=== PATIENT | female | born 1965 | race Caucasian/White ===

== ENCOUNTER 2018-08-03 14:21 | Emergency (ER) | payer OTHER ==
[~2018-08-03 14:21] MED LIST: ISOVUE-370 76%-LOCM 1 ML ONE
[2018-08-03 15:23] LABS: Bilirubin Negative (Negative); Blood, Urine Trace (Negative); Clarity CLEAR (Clear); Glucose, Urine (Dipstick) Negative (Negative); Leukocyte Negative (Negative); Nitrite Negative (Negative); Protein, Urine (Dipstick) Negative (Neg-Trace); Specific Gravity, Urine 1.004 (1.002-1.036); Urobilinogen 0.2 mg/dL (0.2-1.0); pH, Urine 7.5 (5.0-9.0)
[2018-08-03 15:25] LABS: Bacteria/HPF None Seen HPF (None Seen); Hyaline Casts/LPF 0-3 HYALINE CAST LPF (0-3 Hyaline); Pathc Cast-AUWi Flag 0.13 (0-2.49); Squamous Epithelial None Seen HPF (0-3); WBC/HPF None Seen HPF (0-3)
[2018-08-03 15:30] LABS: #Lymphocytes 1.2 thou/uL (1.20-3.40); #Monocytes 0.7 thou/uL (0.11-0.59); #Neutrophils 5.7 thou/uL (1.40-6.50); %Basophils 0.4 % (0.0-1.0); %Eosinophils 0.1 % (0.0-10.0); %Lymphocytes 16.1 % (21.0-51.0); %Monocytes 9.2 % (0.0-10.0); %Neutrophils 74.2 % (42.0-75.0); Hemoglobin 13.1 g/dL (12.0-16.0); Mean Corpuscular HGB CONC 33.2 g/dL (32.0-36.0); Mean Corpuscular Hemoglobin 32.5 pg (27.0-31.0); Mean Corpuscular Volume 97.9 fL (78.0-98.0); Mean Platelet Volume 9.2 fL (7.4-10.4); Platelet Count 201 thou/uL (130-400); RBC Distribution Width 11.8 % (11.5-14.5); Red Blood Cell (RBC) Count 4.03 mill/uL (4.20-5.40); White Blood Cell (WBC) Count 7.6 thou/uL (4.8-10.8)
[2018-08-03 15:36] LABS: BHCG - Serum Negative (NEGATIVE)
[2018-08-03 15:37] LABS: Pregs Control Background? CLEAR/WHITE (CLR/WHITE); Pregs Control Bar Appear? YES (CONTROL BAR)
[2018-08-03 15:53] LABS: ALT (SGPT) 15 U/L (8-55); AST (SGOT) 16 U/L (5-34); Alkaline Phosphatase 53 U/L (40-150); Anion Gap 11 mmol/L (10-20); BUN (Urea Nitrogen) 12 mg/dL (9.8-20.1); Bilirubin, Total 0.7 mg/dL (0.2-1.2); Calc. Creatinine Clearance 0 mL/min (70-130); Calcium 9.4 mg/dL (7.8-10.44); Carbon Dioxide 28 mmol/L (22-29); Chloride 103 mmol/L (98-107); Estimated GFR-MDRD 80; Glucose 99 mg/dL (70-105); Potassium 4.4 mmol/L (3.5-5.1); Sodium 138 mmol/L (136-145)
--- NOTE | 2018-08-03 17:42 | CT ---
CT ABDOMEN AND PELVIS WITH IV CONTRAST: 08/03/18 HISTORY: Left lower quadrant abdominal pain. FINDINGS: The lung bases are clear. There is a 7 mm low density lesion in the median segment of the right lobe of the liver, too small to characterize. In the absence of known malignancy, this is likely a benign finding. No calcified gallstones are seen. The spleen, pancreas adrenal glands, and kidneys are elías l. No free air, free fluid or lymphadenopathy seen in the abdomen or pelvis. The uterus is enlarged with masses. The largest of which is well circumscribed and low density measur ing 9.5 x 10 x 11 cm. This can either represent a degenerative fibroid or leiomyosarcoma. There is no evidence of aneurysmal dilatation of the abdominal aorta. A retroaortic left renal vein i s present. There are degenerative changes in the spine. IMPRESSION: Fibroid uterus with a large mass measuring 9.5 x 10 x 11 cm which may represent a degenerative fibroi d or a leiomyosarcoma. Gynecologic consultation is recommended. Discussed over the telephone with ER physician, Dr. Siria Malin at 5:34 p.m. POS: [facility]ANN
--- NOTE | 2018-08-03 18:42 | ULT ---
GALLBLADDER ULTRASOUND: 08/03/18 HISTORY: Abdominal pain. FINDINGS: The liver, pancreas, and right kidney appear normal. No shadowing gallstones, gallbladder wall thicke devonte, or pericholecystic fluid are seen. There is a small amount of sludge in the gallbladder. No yonny e fluid is noted in Hoang's pouch. IMPRESSION: Small amount of gallbladder sludge, otherwise unremarkable exam. POS: TAY
[2018-08-03] MEDS ORDERED: Ondansetron PF 4 MG/2 ML Vial ONE (20:02)
[2018-08-03] MEDS ORDERED: Morphine 4 MG/ML VIAL ONE (20:02)
--- NOTE | 2018-08-03 20:50 | ULT ---
TRANSABDOMINAL AND TRANSVAGINAL PELVIC ULTRASOUND WITH BLANCO SCALE, COLOR FLOW AND SPECTRAL DOPPLER IM AGING 08/03/18 HISTORY: Left lower quadrant pain. The uterus measures 10 x 10.6 x 10.6 cm with a large complex heterogeneous mass within the uterus whi ch almost occupies the entire uterus. The uterus itself is partially obscured. Endometrium measures 6 mm in thickness without endometrial fluid. The mass almost occupies the entire uterus. The right ova ry is not visualized. The left ovary measures 2.9 x 2.1 x 2.7 cm and has a normal appearance and demo nstrates flow. No free fluid is seen. IMPRESSION: 1. Large uterine mass. 2. Please see CT report. POS: [facility]ANN
== END 2018-08-03 21:49 | disposition home or self-care (01) ==
LOC: ERS 14:21
DX: N85.8 Other specified noninflammatory disorders of uterus (principal); E03.9 Hypothyroidism, unspecified; Z79.899 Other long term (current) drug therapy
CPT/HCPCS: 36415; 74177; 76705; 76856; 80053; 81003; 81015; 83690; 84703; 85025; 87086; 93976; 96361; 96374; 96375; J2270; J2405; Q9966

== ENCOUNTER 2018-08-05 11:15 | Inpatient (IN) | payer OTHER ==
[2018-08-05 12:14] VITALS: BMI 24.9
--- NOTE | 2018-08-08 00:43 | HP ---
Date of operation, 08/08/2018. CHIEF COMPLAINT: Lower abdominal and pelvic pain. HISTORY OF PRESENT ILLNESS: This is a 52-year-old P1 with acute onset of pain in the last week in the lower abdomen. She presented to the ER secondary to worsening lower abdominal and pelvic pain and swelling, and CT and pelvic ultrasound showed a large 10 x 10 cm intrauterine mass, probable fibroid with degenerative features. Considerations would be sarcomatous change. CT scan was negative for adenopathy or ascites or other concerning findings. The patient has had nausea and lower abdominal distention. She has had decreased appetite in the last week with these progressive symptoms. She does find slight relief with nonsteroidal anti-inflammatories. REVIEW OF SYSTEMS: She denies any vaginal bleeding or discharge. No fever or unintended weight loss. No change in appetite. No cardiovascular or respiratory symptoms. No neurologic or psychiatric symptoms. CAMP COORDINATOR HISTORY: Postmenopausal eight months since LMP. Last Pap smear four years ago. Sexually active. She has no history of STDs. OB HISTORY: G1, P1, x1. FAMILY HISTORY: Diabetes, maternal grandmother. SOCIAL HISTORY: Negative x3. PAST SURGICAL HISTORY: Negative. PAST MEDICAL HISTORY: Hypothyroidism. PHYSICAL EXAMINATION: VITAL SIGNS: BMI 25.1, blood pressure 114/72, pulse is 70, respirations 18, O2 saturation 99%. GENERAL: No acute distress. Alert and oriented x3. CARDIAC: Regular rate and rhythm. LUNGS: Clear to auscultation bilaterally. ABDOMEN: Soft, nontender, and nondistended. EXTREMITIES: No edema, cyanosis, or clubbing. PELVIC: Deferred to OR. ASSESSMENT AND PLAN: A 52-year-old with worsening lower abdominal pain and distention with appearance of the uterine fibroid degeneration on imaging and need for emergent surgery. I have counseled the patient on total abdominal hysterectomy, bilateral salpingo-oophorectomy in the event that this is a malignancy to ensure resection of the mass in total. I have discussed postoperative referral to CAMP COORDINATOR/ONC in the event this is malignant, however, this is less likely at this point. I have counseled the patient on that and she wishes to proceed. All risks and benefits were discussed with the patient and all questions were answered. Job ID: [id number]
[2018-08-08] MEDS ORDERED: CeleCOXIB 100 MG CAP ONE (06:15)
[2018-08-08] MEDS ORDERED: Famotidine/PF 20 mg/2ml Vial ONE (06:15)
[2018-08-08] MEDS ORDERED: Gabapentin 300 MG CAP ONE (06:15)
[2018-08-08] MEDS ORDERED: Fentanyl 100 MCG/2 ML VIAL ONE ×5 (06:48→11:19)
[2018-08-08] MEDS ORDERED: Ondansetron PF 4 MG/2 ML Vial ONE ×3 (06:59→11:58)
[2018-08-08] MEDS ORDERED: Scopolamine 1.5 mg/72 hour Patch ONE (06:59)
[2018-08-08] MEDS ORDERED: Bupivacaine PF 0.5% 30 ML VIAL ONE ×2 (08:02→09:02)
[2018-08-08] MEDS ORDERED: Ondansetron PF 4 MG/2 ML Vial IVP PRN (09:45)
[2018-08-08] MEDS ORDERED: Bisacodyl 10 MG SUPP PR PRN (09:45)
[2018-08-08] MEDS ORDERED: diphenhydrAMINE 25 MG CAP PO PRN (09:45)
[2018-08-08] MEDS ORDERED: Ropivacaine 0.2% 550 ML 750 ML NERVE BLCK SCH (09:45)
[2018-08-08] MEDS ORDERED: Morphine 4 MG/ML VIAL SLOW IVP PRN (09:45)
[2018-08-08] MEDS ORDERED: Zolpidem Tartrate 5 MG TAB PO PRN (09:45)
[2018-08-08] MEDS ORDERED: Promethazine HCl 25 MG/ML VIAL IM PRN ×2 (09:45→10:21)
[2018-08-08] MEDS ORDERED: Bisacodyl 5 MG TAB PO PRN (10:03)
[2018-08-08] MEDS ORDERED: Ropivacaine HCl/PF 750 ML in Premix Bag 1 BAG NERVE BLCK SCH (10:15)
[2018-08-08] MEDS ORDERED: Promethazine HCl 25 MG/ML VIAL ONE (10:17)
[2018-08-08] MEDS ORDERED: Promethazine HCl 25 MG/ML VIAL SLOW IVP PRN (10:21)
[2018-08-08] MEDS ORDERED: Ondansetron HCl/PF 4 MG/2 ML Vial IVP PRN (10:21)
[2018-08-08] MEDS ORDERED: Lidocaine 1% PF 5 ML VIAL ONE (11:58)
[2018-08-08] MEDS ORDERED: Rocuronium Bromide 10 MG/ML (10ML VIAL) ONE (11:58)
[2018-08-08] MEDS ORDERED: diphenhydrAMINE 50 MG/ML VIAL ONE (11:58)
[2018-08-08] MEDS ORDERED: PROPOFOL 200 MG/20 ML VIAL ONE (11:58)
[2018-08-08] MEDS ORDERED: Dexamethasone 20 MG/5 ML VIAL ONE (11:58)
[2018-08-08] MEDS ORDERED: Glycopyrrolate 0.2 MG/ML 5 ML SYRINGE ONE (11:58)
[2018-08-08] MEDS: Ketorolac Tromethamine 30 MG/ML VIAL IVP SCH ×2 (12:43→18:35)
[2018-08-08] MEDS: Lactated Ringer's 1,000 ML IV SCH (12:44)
[2018-08-08] MEDS ORDERED: Acetaminophen 1,000 MG in Premix Bag 1 BAG IVPB PRN (17:24)
[2018-08-08] MEDS: Docusate Calcium (SURFAK) 240 MG CAP PO SCH (21:20)
[2018-08-08] MEDS: Gabapentin 300 MG CAP PO SCH (21:20)
[2018-08-08] MEDS: HYDROcodone/Acetaminophen 5/325 mg Tablet PO PRN (22:09)
[2018-08-08] MEDS: Simethicone Chewable 80 MG TAB PO PRN (22:10)
[2018-08-09] MEDS: Ketorolac Tromethamine 30 MG/ML VIAL IVP SCH ×2 (00:47→04:53)
[2018-08-09] MEDS: Lactated Ringer's 1,000 ML IV SCH ×3 (00:50→14:14)
--- NOTE | 2018-08-09 04:51 | PDOC.EVN ---
Event Note - Event Note Event Note: 08/09/17 at 0445: RN Phone call to me: Patient had TRACEY and BSO by Dr arce, midline incision. Called for low UOP. BP is 85/51, pulse 61...abd is nontender and appropriate tenderness...no suspcicion of bleeding at this time. RN believes may be fluid poor. As nontachycardic and appears stable, I will give 1 liter bolus for now. Hemogram ordered for 0500. UOP: 200ml last check by herr when it was removed at 2215... at 0440, voided 100ml, bladder scan was [address] Will notify Dr Arce at 0700. I will hold Toradol for now.
[2018-08-09] MEDS ORDERED: Lactated Ringer's 1,000 ML IV SCH ×2 (05:00→09:00)
[2018-08-09] MEDS: HYDROcodone/Acetaminophen 5/325 mg Tablet PO PRN ×4 (05:38→22:19)
[2018-08-09] MEDS: Levothyroxine Sodium 112 MCG TAB PO SCH (05:44)
[2018-08-09 07:38] LABS: Hemoglobin 9.9 g/dL (12.0-16.0); Mean Corpuscular HGB CONC 31.6 g/dL (32.0-36.0); Mean Corpuscular Hemoglobin 31.4 pg (27.0-31.0); Mean Corpuscular Volume 99.2 fL (78.0-98.0); Mean Platelet Volume 8.7 fL (7.4-10.4); Platelet Count 268 thou/uL (130-400); RBC Distribution Width 11.7 % (11.5-14.5); Red Blood Cell (RBC) Count 3.17 mill/uL (4.20-5.40); White Blood Cell (WBC) Count 8.7 thou/uL (4.8-10.8)
--- NOTE | 2018-08-09 07:53 | PDOC.EVN ---
Event Note - Event Note Event Note: POD1 S: No complaints, ambulating, passing flatus, mariana po. Only able to void 75cc since DC catheter last night around 2300. Pain controlled. Denies dizziness, weakness, palpitations. O: 87/52 NAD RRR CTAB S/appttp/ND/BS+ Inc with tegaderm, c/d No e/c/c Hgb 9.9 A/P POD1 s/p TRACEY BSO for symptomatic uterine fibroid BP slightly low, will incr fluids, may need to lower Onq pump, and cont to monitor, asymptomatic, otherwise VSSAF Hgb 13-->ebl 200-->9.9, no s/sx anemia Meeting appropriate milestones Pain- cont OnQ pain pump, po pain meds Pathology pending - Straight cath, allow up to 6h to void, check creatinine ppx ambulating Cont postop care.
[2018-08-09] MEDS: Docusate Calcium (SURFAK) 240 MG CAP PO SCH ×2 (09:05→22:19)
[2018-08-09] MEDS: Gabapentin 300 MG CAP PO SCH ×2 (09:05→22:19)
[2018-08-09] MEDS: Ibuprofen 800 MG TAB PO SCH ×2 (09:05→16:30)
[2018-08-09 09:14] LABS: Anion Gap 12 mmol/L (10-20); BUN (Urea Nitrogen) 10 mg/dL (9.8-20.1); Calc. Creatinine Clearance 94 mL/min (70-130); Calcium 8.6 mg/dL (7.8-10.44); Carbon Dioxide 27 mmol/L (22-29); Chloride 102 mmol/L (98-107); Estimated GFR-MDRD 76; Glucose 89 mg/dL (70-105); Potassium 4.1 mmol/L (3.5-5.1); Sodium 137 mmol/L (136-145)
[2018-08-09] MEDS: Simethicone Chewable 80 MG TAB PO PRN ×2 (13:00→18:42)
[2018-08-09] MEDS ORDERED: Morphine 2 MG/ML SYRINGE SLOW IVP SCH (13:00)
[2018-08-10] MEDS: Ibuprofen 800 MG TAB PO SCH ×3 (00:30→16:31)
[2018-08-10] MEDS: Lactated Ringer's 1,000 ML IV SCH ×3 (01:03→16:59)
[2018-08-10] MEDS: Levothyroxine Sodium 112 MCG TAB PO SCH (05:41)
[2018-08-10] MEDS ORDERED: Milk Of Magnesia 30 ML UDCUP PO PRN (08:06)
[2018-08-10] MEDS ORDERED: Acetaminophen 500 MG TAB PO PRN (08:06)
--- NOTE | 2018-08-10 08:10 | PDOC.EVN ---
Event Note - Event Note Event Note: POD2 S: Feels slight nausea this am after drinking coffee. +flatus, no BM. Was constipated prior to surgery. Normal voiding. O: VSSAF NAD RRR CTAB softly distended/BS decreased/seth ttp Inc c/d/i with soraya No e/c/c A: POD2 s/p TRACEY BSO P: Ambulate, laxatives to promote BM, cont po pain meds. If doing well will DC home later today.
[2018-08-10] MEDS: Docusate Calcium (SURFAK) 240 MG CAP PO SCH (08:53)
[2018-08-10] MEDS: Gabapentin 300 MG CAP PO SCH (08:57)
[2018-08-10 11:16] VITALS: TEMP 98.4
[2018-08-10] MEDS ORDERED: Bisacodyl 10 MG SUPP PR SCH (12:45)
[2018-08-10 15:50] VITALS: BP 107/57
--- NOTE | 2018-08-11 10:13 | OP ---
DATE OF PROCEDURE: 08/08/2018 PREOPERATIVE DIAGNOSIS: Symptomatic uterine mass versus fibroid. POSTOPERATIVE DIAGNOSIS: Symptomatic uterine mass versus fibroid. PROCEDURE PERFORMED: Total abdominal hysterectomy, bilateral salpingo-oophorectomy. ANESTHESIA: General endotracheal. EARLY CHILDHOOD EDUCATOR AIDE SURGEONS: 1. Carol Hobbs DO. 2. MOIRA Mckinnon. ESTIMATED BLOOD LOSS: 200 mL. INTRAVENOUS FLUIDS: 1200 mL crystalloid. URINE OUTPUT: 400 mL clear urine. COMPLICATIONS: None. DRAINS: Cartagena catheter. PATHOLOGY: Uterus, uterine mass, cervix, bilateral fallopian tubes and ovaries. FINDINGS: On exam under anesthesia, a 20-week size nonmobile mass present, palpable largely posteriorly on intraabdominal survey, what appeared to be a large posterior degenerating fibroid was present. This was approximately 12 cm and the remainder of the uterus was also enlarged. The ovaries and fallopian tubes were normal bilaterally as was the cervix. The peritoneum was smooth, no palpable metastasis or signs of malignancy on pelvic survey. OPERATIVE INDICATIONS: A 52-year-old presented to the office as an ER followup secondary to acute onset of lower abdominal pelvic pain. The patient had not been to the orthotic technician in some time and had a large uterine mass suspected to be degenerating fibroid, and the patient was taken to the operating room for hysterectomy and knew that in cases of malignancy that further evaluation by Oncology may be required. She was discussed the risks of surgery with including bleeding, transfusion, infection, damage to surrounding structures. The patient understood and wished to proceed. OPERATIVE TECHNIQUE: The patient was taken to the operating room where general anesthesia was obtained without difficulty. The patient was prepped and draped in a sterile fashion in the dorsal supine position. A vertical midline incision was made in the lower abdomen and the subcutaneous tissue was dissected with the Bovie. The fascia was nicked with the Bovie and extended cephalad and caudad with the Bovie as well. The midline was identified and the rectus were bluntly divided. The Braxton clamp was placed on one side of the rectus and the Bovie was used to dissect the rectus off the fascia bilaterally. The peritoneum was grasped with 2 hemostats and incised with the Metzenbaum and then extended with the Bovie. The O'Benny-O'Harris retractor was then placed into the incision and the bowel was packed away. The patient was placed in slight Trendelenburg. The uterus was then identified and the uterine mass was noted to be a posterior mass present and deeply fitting into the posterior cul-de-sac. At this time, 2 Amie clamps were placed on the uterine cornu. The round ligaments were suture ligated and transected bilaterally. The peritoneum was then incised from the round ligament to the ovary. The infundibulopelvic ligament was identified and the peritoneum was incised with the Bovie towards the IP and a window was identified and again this was incised with the Bovie and the ureter was identified running medially. Kenny clamp was placed on the infundibulopelvic ligament and doubly clamped. The pedicle was transected and then suture ligated and tied with a free tie of 0 Vicryl and hemostasis was noted. The peritoneum was then incised on the lateral side of the uterus and down towards the uterosacral ligament posteriorly. The anterior leaf of the broad ligament was then dropped down on the right side using Metzenbaum. The bladder was noted to be adherent cephalad onto the fibroid as well. This was carefully taken down with Metzenbaum with easy visualization and the later was easily peeled away off the fibroid down distally. The left side was then incised on the round ligament towards the IP ligament. The ureter was noted on this side as well by palpation and a window was made in the IP ligament with the Bovie and this was doubly clamped with Kenny clamps and tied off with suture ligation and free ties of 0 Vicryl medially was also suture ligated for hemostasis. The posterior peritoneum was dropped down with the use of pickups and the Bovie cautery. There was some give of the uterus at that point anteriorly that allowed more visualization of the posterior peritoneum that needed to be taken down. The ureter was identified throughout the case to ensure no intimate involvement of the mass with the ureter. At times, blunt dissection was performed with finger fracturing and the vessels were difficult to visualize, however, on the uterine pedicle. Incisions were turned anteriorly, was taken down with the Bovie and the bladder was also dropped down on this side or below. The peritoneum was dissected off the fibroid all the way around as low as the fibroid would give, however, there was still not clear visualization of the uterine vessels and despite taking this down with the use of sharp and cautery dissection. At that point, the decision was made to enucleate the large mass to allow the uterus to collapse and the vessels to be visible. The fibroid was incised over the capsule and when the fibroid capsule was reached, the Chasidy was placed on the fibroid for traction and the fibers were dissected off with cautery around the mass. The mass did have a degenerating appearance and was liquid in some parts. The mass was dissected out for an additional 15 minutes and was delivered completely at one time. At this time, the uterine vessels were immediately visible. There was not an excessive amount of bleeding from the hysterotomy that was made. Clamps were placed on each side of the hysterotomy. The skeletonization of the uterine vessels was then possible with the use of Bovie cautery. These were adequately visualized and the ureter was also noted running laterally to the uterine pedicle and the retroperitoneum was dissected through to allow actual visualization of the ureter away from the uterine pedicle and this was done bilaterally. The uterine vessels were clamped with curved Kenny clamps. A back clamp was placed on the uterines and this was incised and suture ligated with 9 Vicryl. Straight [place] clamps were taken down through the cervix, cardinal ligament as well as the uterosacral and these were each suture ligated bilaterally. Once the distal-most part of the cervix was met, the curved Kenny were used on the vaginal cuff angle. This was cut and Kenny suture was placed on the cuff angles with 0 Vicryl. The cuff was then closed in [id number] 0 Vicryl sutures with excellent closure and hemostasis noted. There was an additional bleeding vessel around the bladder, that was hemostatic with a running suture of 4-0 Monocryl. The pelvis was then copiously irrigated and suctioned. Hemostasis was again noted to be excellent. The ureters were again identified bilaterally. The sutures were cut from the vaginal cuff and the laps were taken out of the abdomen and the retractor was removed. The rectus muscles were examined and noted to be hemostatic. The fascia was closed with a 0-looped PDS. The subcutaneous tissue was irrigated and cauterized of any bleeders and reapproximated with a 2-0 plain gut in a running fashion. The skin was closed with soraya and a Tegaderm dressing was applied. The patient tolerated the procedure well. Sponge and needle counts correct x2. The patient was taken to recovery in stable condition. The patient received Ancef 2 g prior to the procedure. Job ID: [id number]
--- NOTE | 2018-08-11 10:13 | DIS ---
DATE OF ADMISSION: 08/08/2018 DATE OF DISCHARGE: 08/10/2018 ADMISSION DIAGNOSES: 1. Symptomatic uterine fibroids. 2. Pelvic pain. DISCHARGE DIAGNOSES: Status post total abdominal hysterectomy, bilateral salpingo-oophorectomy. DISCHARGE CONDITION: Stable. CONSULTATIONS: None. PROCEDURES: On 08/08, the patient underwent total abdominal hysterectomy, bilateral salpingo-oophorectomy with on-Q pump placement. HISTORY AND PHYSICAL: Please see previously dictated H and P. HOSPITAL COURSE: This 52-year-old presented to Day Surgery to undergo her scheduled surgery secondary to acute onset pelvic pain and a finding of likely a large fibroid on CT and ultrasound. The patient had an uncomplicated surgery with an estimated blood loss of 200 mL through a lower midline vertical incision that was closed with soraya. She had the dual lumen on-Q pump for pain control postoperatively and the patient did well. She met appropriate milestones. She had temporary low urine output on postoperative day zero and this resolved with fluid and ambulation. The patient was able to void without difficulty. On postoperative day 1, she did take p.o. ibuprofen and p.r.n. [place], which controlled her pain well. She had vital signs that were within normal limits. Her postoperative hemoglobin was 9.9, hematocrit 31.4, and platelets were 268. She also had a normal chemistry panel. She had return of bowel function with bowel movement after laxatives were given and was dispositioned for discharge on postoperative day 2. Her final pathology is pending at the time of discharge. She will follow up with me on postoperative day 7 for staple removal and was given instructions on care of on-Q pump and removal. Job ID: [id number]
== END 2018-08-10 18:53 | disposition home or self-care (01) | DRG 743 ==
LOC: SURG A 08-08 05:49 → 3SE 08-08 10:59
PROVIDERS: ADMIT Student in an Organized Health Care Education/Training Program; ATTEND Student in an Organized Health Care Education/Training Program
PROC: 0UT90ZZ Resection of Uterus, Open Approach (ICD-10-PCS; principal; 2018-08-08)
PROC: 0UT20ZZ Resection of Bilateral Ovaries, Open Approach (ICD-10-PCS; 2018-08-08)
PROC: 0UT70ZZ Resection of Bilateral Fallopian Tubes, Open Approach (ICD-10-PCS; 2018-08-08)
PROC: 0UTC0ZZ Resection of Cervix, Open Approach (ICD-10-PCS; 2018-08-08)
DX: D25.9 Leiomyoma of uterus, unspecified (principal); E03.9 Hypothyroidism, unspecified; Z79.899 Other long term (current) drug therapy
CPT/HCPCS: 36415; 80048; 80076; 83690; 85027; 86850; 86900; 86901; 88142; 88307; G0123; J0131; J0690; J1100; J1200; J1885; J2001; J2270; J2405; J2550; J2704; J2795; J3010; S0020; S0028

== ENCOUNTER 2018-09-05 12:55 | Outpatient (CLI) | payer OTHER ==
--- NOTE | 2018-09-05 14:37 | MRI ---
MRI RIGHT SHOULDER: Date: 09/05/18 PROVIDED CLINICAL HISTORY: Right shoulder pain. FINDINGS: There is predominantly high grade partial thickness bursal surface tearing involving the distal supra spinatus tendon at the footplate. There is high grade partial thickness undersurface tearing involvin g the anterior infraspinatus tendon approximately 2.3 cm from the footplate. The components of the ro tator cuff appear otherwise intact. There is prominent thickening and signal inhomogeneity involving the intra-articular long head biceps tendon with linear fluid signal intensity seen along with enlarg ement of the bicipital segment. There is a small glenohumeral joint effusion and prominent subacromial subdeltoid bursal fluid. Nondi splaced tearing involving the posterior-superior labrum is suspected. No focal articular cartilage de fect is apparent. Acromioclavicular joint osteoarthrosis is demonstrated, producing mass effect upon the subjacent supr aspinatus. Rotator cuff muscular volume appears preserved. No focal concerning regional marrow or mus cular signal abnormality. Prominent subcortical cystic change within the greater tuberosity. IMPRESSION: 1. Predominantly high grade partial thickness bursal surface tearing involving the distal supraspina tus tendon at the footplate. The degree of subacromial subdeltoid bursal fluid suggests an occult ful l thickness component. 2. Partial thickness undersurface tearing involving the anterior infraspinatus tendon as above. 3. Intra-articular and bicipital long head biceps tendinosis and partial thickness nonattenuating in terstitial tearing. 4. Small glenohumeral joint effusion. 5. Acromioclavicular joint osteoarthrosis. POS: [facility]
== END 2018-09-05 12:56 | disposition home or self-care (01) ==
LOC: SCSMRI 12:55
PROVIDERS: ATTEND Orthopaedic Surgery
DX: M25.511 Pain in right shoulder (principal); M75.101 Unspecified rotator cuff tear or rupture of right shoulder, not specified as traumatic; S46.811A Strain of other muscles, fascia and tendons at shoulder and upper arm level, right arm, initial encounter; M75.21 Bicipital tendinitis, right shoulder; M25.411 Effusion, right shoulder; M19.011 Primary osteoarthritis, right shoulder

== ENCOUNTER 2018-09-15 16:06 | Outpatient (CLI) | payer OTHER ==
[2018-09-15 17:58] LABS: #Basophils 0.1 thou/uL (0.0-0.2); #Eosinphils 0.1 thou/uL (0.0-0.7); #Lymphocytes 2.2 thou/uL (1.20-3.40); #Monocytes 0.5 thou/uL (0.11-0.59); #Neutrophils 3.1 thou/uL (1.40-6.50); %Eosinophils 1.9 % (0.0-10.0); %Lymphocytes 37.3 % (21.0-51.0); %Monocytes 7.9 % (0.0-10.0); Hemoglobin 13.1 g/dL (12.0-16.0); Mean Corpuscular HGB CONC 34.1 g/dL (32.0-36.0); Mean Corpuscular Hemoglobin 32.2 pg (27.0-31.0); Mean Corpuscular Volume 94.2 fL (78.0-98.0); Mean Platelet Volume 9.1 fL (7.4-10.4); Platelet Count 236 thou/uL (130-400); RBC Distribution Width 12.2 % (11.5-14.5); Red Blood Cell (RBC) Count 4.07 mill/uL (4.20-5.40); White Blood Cell (WBC) Count 5.9 thou/uL (4.8-10.8)
[2018-09-15 18:01] LABS: Prothrombin Time 12.9 SEC (12.0-14.7)
[2018-09-15 18:11] LABS: Anion Gap 13 mmol/L (10-20); BUN (Urea Nitrogen) 21 mg/dL (9.8-20.1); Calc. Creatinine Clearance 0 mL/min (70-130); Calcium 9.4 mg/dL (7.8-10.44); Carbon Dioxide 27 mmol/L (22-29); Chloride 100 mmol/L (98-107); Estimated GFR-MDRD 72; Glucose 87 mg/dL (70-105); Sodium 136 mmol/L (136-145)
== END 2018-09-15 16:07 | disposition home or self-care (01) ==
LOC: LABBT 16:06
PROVIDERS: ATTEND Orthopaedic Surgery
DX: Z01.812 Encounter for preprocedural laboratory examination (principal); M75.121 Complete rotator cuff tear or rupture of right shoulder, not specified as traumatic; M75.101 Unspecified rotator cuff tear or rupture of right shoulder, not specified as traumatic
CPT/HCPCS: 80048; 85025; 85610

== ENCOUNTER 2018-09-22 05:43 | Day surgery (SDC) | payer OTHER ==
[2018-09-15 16:24] VITALS: BMI 23.8
[2018-09-22] MEDS ORDERED: Midazolam HCl 2 mg/2 ml Vial ONE (06:33)
[2018-09-22] MEDS ORDERED: Fentanyl 100 MCG/2 ML VIAL ONE ×3 (06:33→10:23)
[2018-09-22] MEDS ORDERED: Lidocaine 1% (PF) 30 ML VIAL ONE (06:34)
[2018-09-22] MEDS ORDERED: Bupivacaine/Epinephrine 0.25% 30 ML VIAL ONE (06:44)
[2018-09-22] MEDS ORDERED: Promethazine HCl 25 MG/ML VIAL IM PRN (07:38)
[2018-09-22] MEDS ORDERED: Fentanyl 100 MCG/2 ML VIAL IV PRN (07:38)
[2018-09-22] MEDS ORDERED: Ropivacaine 0.2% 550 ML 550 ML NERVE BLCK SCH (07:38)
[2018-09-22] MEDS ORDERED: Ondansetron PF 4 MG/2 ML Vial IVP PRN (07:38)
[2018-09-22] MEDS ORDERED: HYDROcodone/Acetaminophen 5/325 mg Tablet PO PRN ×2 (07:38)
[2018-09-22] MEDS ORDERED: Ketorolac Tromethamine 30 MG/ML VIAL IVP PRN (07:38)
[2018-09-22] MEDS ORDERED: traMADol HCl 50 MG TAB PO PRN ×2 (07:38)
[2018-09-22] MEDS ORDERED: Zolpidem Tartrate 5 MG TAB PO PRN (07:38)
[2018-09-22] MEDS ORDERED: Phenylephrine HCL 10 MG/ML VIAL ONE ×2 (07:39→15:06)
[2018-09-22] MEDS ORDERED: Promethazine HCl 25 MG/ML VIAL ONE (09:41)
[2018-09-22] MEDS ORDERED: Ropivacaine 0.2% HCl/PF (40 MG/20 ML VIAL) ONE (15:02)
[2018-09-22] MEDS ORDERED: Ropivacaine 0.5% HCl/PF (150 MG/30 ML VIAL) ONE (15:02)
[2018-09-22] MEDS ORDERED: Rocuronium Bromide 10 MG/ML (10ML VIAL) ONE (15:06)
[2018-09-22] MEDS ORDERED: Lidocaine 1% PF 5 ML VIAL ONE (15:06)
[2018-09-22] MEDS ORDERED: Ketorolac Tromethamine 30 MG/ML VIAL ONE (15:06)
[2018-09-22] MEDS ORDERED: PROPOFOL 200 MG/20 ML VIAL ONE (15:06)
[2018-09-22] MEDS ORDERED: Ondansetron PF 4 MG/2 ML Vial ONE (15:06)
--- NOTE | 2018-09-23 11:06 | OP ---
DATE OF PROCEDURE: 09/22/2018 PREOPERATIVE DIAGNOSES: Right full-thickness rotator cuff tear with biceps tendinopathy. POSTOPERATIVE DIAGNOSES: 1. Right full-thickness rotator cuff tear. 2. High-grade tear of the biceps tendon. PROCEDURES PERFORMED: 1. Right rotator cuff repair. 2. Right biceps tenodesis. ELEMENTARY SUMMER SCHOOL TEACHER: None. ANESTHESIOLOGIST: Uli Cobb CRNA ANESTHESIA: The patient received a general endotracheal intubation with interscalene block. ESTIMATED BLOOD LOSS: 50 mL. TOURNIQUET TIME: None. IMPLANTS: A 5.5 corkscrew and two 4.75 SwiveLock. COMPLICATIONS: None. HISTORY OF PRESENT ILLNESS: Ms. Gary is a 52-year-old female, who presented to me with right shoulder pain, which has been present for 5 to 6 years. The patient has pain with limited range of motion and overhead activities. Pain is worse to the last year. The patient's MRI is showing a near full-thickness rotator cuff tear , partial tearing of the infraspinatus, and biceps tendinosis and interstitial tearing. I discussed with the patient the risks and benefits of a right arthroscopic rotator cuff repair with biceps tenodesis and possible decompression. She understood the risks and benefits including pain, scar, bleeding, infection, damage to vital structures, decreased range of motion or strength, nonunion and malunion of the fracture, Bertrand deformity, loss of range of motion, blood clot , and loss of life or limb. The patient understood these risks and benefits, and elected to proceed. DESCRIPTION OF PROCEDURE: Time-out was performed designating the patient's right upper extremity as the operative site based on site, consents, and marking. After time-out, the patient's right upper extremity was prepped and draped in a sterile fashion and placed in beach chair position. Posterior working portal and anterior working portal were placed and visualized intraarticularly in the joint. There was no glenoid or humeral defects that were noted arthroscopically. The biceps was frayed and torn noted upon visualization as well as interstitial tearing. Therefore, I elected to perform a tenotomy at the base of its insertion. After completion of this, I looked the subscapularis was intact. I saw undersurface tear of the rotator cuff intraarticularly. No subscapularis tear. I moved the bursa. There was a free mobile acromion, but I did not really take down the patient's CA ligament. I just cleaned the bursa to expose the shoulder. I found the rotator cuff tear intraarticularly, which completed to a full-thickness defect. I burred down to the bone to help with bleeding from bleeding response and placed an anchor into the footprint of about a 12 mm full-thickness tear. I placed a single anchor in its footprint and placed 2 horizontal mattress sutures in a double row transosseous equivalent to sew the tendon down and to move to the patient's biceps. I found the bicipital groove and was starting to pull it out, making it nodular and was difficult to actually get all the way through the groove within the shoulder. I placed an achor, a 4.75 SwiveLock, into the groove since with force I had difficulty pulling it out. Then, I just sewed it, tenodesed it in place by passing 2 limbs of both sutures through and sewing down 2 knots cut. I took final pictures of my biceps tenodesis and rotator cuff repair, washed and closed with 3-0 nylon. The patient will be in a sling for elbow, wrist, and hand motion. No active elbow range of motion or lifting. I will see her back in clinic in 10 to 14 days for suture removal. Job ID: [id number] [facility]
== END 2018-09-22 12:30 | disposition home or self-care (01) ==
LOC: SDC 05:43
PROVIDERS: ATTEND Orthopaedic Surgery
PROC: 0LS30ZZ Reposition Right Upper Arm Tendon, Open Approach (ICD-10-PCS; principal; 2018-09-22)
PROC: 0LQ10ZZ Repair Right Shoulder Tendon, Open Approach (ICD-10-PCS; principal; 2018-09-22)
DX: M75.121 Complete rotator cuff tear or rupture of right shoulder, not specified as traumatic (principal); M75.22 Bicipital tendinitis, left shoulder; E03.9 Hypothyroidism, unspecified; G89.29 Other chronic pain; G89.18 Other acute postprocedural pain; Z79.899 Other long term (current) drug therapy; Z91.040 Latex allergy status
CPT/HCPCS: A4306; C1713; J0690; J1885; J2001; J2250; J2370; J2405; J2550; J2704; J2795; J3010